=== PATIENT | male | born 1940 | race Caucasian/White ===

== ENCOUNTER → 2020-11-23 | Outpatient (CLI) | payer OTHER ==
[~2020-11-23] MED LIST: BUPIVACAINE HCL 0.5% INJ 30 ML VIAL INJ ONE; DEXAMETHASONE SOD PHOS INJ 4 MG/ML VIAL ONE
== END ==
LOC: RESP 08:40
PROVIDERS: ATTEND Internal Medicine
DX: J44.9 Chronic obstructive pulmonary disease, unspecified (principal)
CPT/HCPCS: 94010; 94727; 94729; J1100

== ENCOUNTER → 2022-01-31 | Outpatient (CLI) | payer OTHER ==
[~2022-01-31] MED LIST changes: +ALBUTEROL SULF 0.083% NEB SOLN 3 ML NEB ONE; -BUPIVACAINE HCL 0.5% INJ 30 ML VIAL INJ ONE; -DEXAMETHASONE SOD PHOS INJ 4 MG/ML VIAL ONE
== END ==
LOC: RESP 09:26
PROVIDERS: ATTEND Family Medicine
DX: J44.9 Chronic obstructive pulmonary disease, unspecified (principal)
CPT/HCPCS: 94010; 94727; 94729

== ENCOUNTER → 2024-05-31 | Outpatient (REF) | payer MEDICARE | LOC: EDSTATUS 09:00 → RESP 09:17 | PROVIDERS: ATTEND Internal Medicine | DX: J61 Pneumoconiosis due to asbestos and other mineral fibers (principal) | CPT/HCPCS: 94060; 94727; 94729 ==